=== PATIENT | female | born 1945 | race Caucasian/White ===

== ENCOUNTER 2017-09-21 12:52 | Emergency (ER) | payer MEDICARE, BC ==
[2017-09-21 13:38] VITALS: BP 127/59
[2017-09-21 14:08] LABS: CHLORIDE,CL 107 mmol/L (98-107); SODIUM,NA 140 mmol/L (136-145)
--- NOTE | 2017-09-21 15:00 | EDM.PDOC ---
ED HPI GENERAL MEDICAL PROBLEM - General Chief Complaint: General Stated Complaint: weakness and history of anemia Time Seen by Provider: 09/21/17 13:10 Source of Information: Reports: Patient History Limitations: Reports: No Limitations - History of Present Illness INITIAL COMMENTS - FREE TEXT/NARRATIVE: Patient is in the emergency room with weakness and just not feeling right. She has had some trouble with anemia with her hemoglobin going down to 6.3 at one time and then back up to 9. She also did have a low iron of 10 and is now on iron supplementation. She does have a history of colonoscopy which was done this year and also EGD. She did say that they are having a hard time finding out why she is bleeding or where she is bleeding from. She also did have a history of a stroke in July 2017 in which she is recovering very well. Onset: Gradual Onset Date: 09/18/17 Duration: Chronic, Getting Worse Location: Reports: Other (Generalized weakness.) Quality: Reports: Burning Severity: Moderate Improves with: Reports: None Worsens with: Reports: None Associated Symptoms: Reports: Weakness. Denies: Confusion, Chest Pain, Fever/ Chills, Headaches, Nausea/Vomiting, Shortness of Breath - Related Data Allergies Allergy/AdvReac Type Severity Reaction Status Date / Time perfume Allergy Other Verified 09/21/17 13:22 molds and smuts Allergy Other Uncoded 12/12/16 08:11 smoke Allergy Other Uncoded 12/12/16 08:11 Home Meds: Home Meds Amoxicillin 500 mg PO TID 12/09/16 [History] Aspirin [Halfprin] 81 mg PO DAILY 12/09/16 [History] Calcium Carbonate/Vitamin D2 [Calcium Oys Shell 250 MG] 1 tab PO BID 12/09/16 [ History] Cholecalciferol (Vitamin D3) [Vitamin D3] 2,000 unit PO DAILY 12/09/16 [History] Multivitamin [Multivitamins] 1 tab PO DAILY 12/09/16 [History] Vitamin B Complex [B Complex] 1 tab PO DAILY 12/09/16 [History] Albuterol [Ventolin HFA] 2 puff INH Q4H PRN 09/21/17 [History] Carvedilol [Carvedilol] 1 tab PO BID 09/21/17 [History] Ferrous Sulfate 300 mg PO DAILY 09/21/17 [History] Lisinopril [Lisinopril] 10 mg PO DAILY 09/21/17 [History] atorvaSTATin [Lipitor] 5 mg PO BEDTIME 09/21/17 [History] Past Medical History HEENT History: Reports: Cataract, Hard of Hearing, Other (See Below) Other HEENT History: presbyopia. myopia Cardiovascular History: Reports: None Respiratory History: Reports: None Other Respiratory History: Early pnuemonia and bronchitis Gastrointestinal History: Reports: Other (See Below) Other Gastrointestinal History: hx h. pylori. 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: Musculoskeletal History: Reports: Arthritis Neurological History: Reports: Concussion, CVA Psychiatric History: Reports: Anxiety Endocrine/Metabolic History: Reports: Osteopenia Hematologic History: Reports: Anemia, Iron Deficiency Immunologic History: Reports: None Oncologic (Cancer) History: Reports: None Dermatologic History: Reports: Other (See Below) Other Dermatologic History: skin tumor - Past Surgical History Cardiovascular Surgical History: Reports: None Neurological Surgical History: Reports: None Musculoskeletal Surgical History: Reports: Other (See Below) Social & Family History - Tobacco Use Smoking Status *Q: Never Smoker Years of Tobacco use: 10 Used Tobacco, but Quit: Yes Second Hand Smoke Exposure: No - Caffeine Use Caffeine Use: Reports: Coffee - Alcohol Use Days Per Week of Alcohol Use: 2 Number of Drinks Per Day: 1 Total Drinks Per Week: 2 - Recreational Drug Use Recreational Drug Use: No Drug Use in Last 12 Months: No ED ROS GENERAL - Review of Systems Review Of Systems: See Below Constitutional: Reports: Weakness, Fatigue. Denies: Fever, Chills, Night Sweats HEENT: Reports: No Symptoms Respiratory: Denies: Shortness of Breath, Wheezing, Cough Cardiovascular: Denies: Chest Pain, Edema, Lightheadedness Endocrine: Reports: No Symptoms GI/Abdominal: Reports: Other (She has not noticed any darkening stools.). Denies: Constipation, Diarrhea, Nausea, Vomiting : Reports: No Symptoms Musculoskeletal: Reports: Other (Shows generalized muscle weakness and cannot walk a long distance without feeling weak and tired.) Skin: Reports: No Symptoms Neurological: Reports: Difficulty Walking, Weakness. Denies: Confusion, Dizziness, Headache, Numbness, Tingling Psychiatric: Reports: No Symptoms ED EXAM, GENERAL - Physical Exam Exam: See Below Exam Limited By: No Limitations General Appearance: Alert, No Apparent Distress Ears: Normal External Exam, Normal TMs Nose: Normal Inspection Throat/Mouth: Normal Inspection, Normal Oropharynx Head: Normocephalic Neck: Full Range of Motion Respiratory/Chest: No Respiratory Distress, Lungs Clear, Normal Breath Sounds. No: Crackles, Rales, Rhonchi, Wheezing Cardiovascular: Regular Rate, Rhythm, No Edema, No JVD, No Murmur Peripheral Pulses: 2+: Radial (L), Radial (R) GI/Abdominal: Normal Bowel Sounds, Soft, Non-Tender Extremities: Normal Range of Motion, No Pedal Edema Neurological: Alert, Oriented, CN II-XII Intact, Normal Gait Psychiatric: Normal Affect, Normal Mood Skin Exam: Warm, Dry, Intact, Normal Color, No Rash Course - Vital Signs Last Recorded V/S: Last Vital Signs Temp 36.0 C 09/21/17 13:28 Pulse 80 09/21/17 13:28 Resp 16 09/21/17 13:28 BP 127/59 L 09/21/17 13:28 Pulse Ox 100 09/21/17 13:28 - Orders/Labs/Meds Labs: Laboratory Tests 09/21/17 09/21/17 09/21/17 Range/Units 13:30 13:30 13:30 WBC 5.4 (4.0-10.0) x10^3/uL RBC 2.06 L (4.00-5.50) x10^6/uL Hgb 5.3 L* (12.0-16.0) g/dL Hct 18.3 L (33.0-47.0) % MCV 88.8 (78.0-93.0) fL MCH 25.7 L (26.0-32.0) pg MCHC 29.0 L (32.0-36.0) g/dL RDW Coeff of Marie 19.6 H (10.0-15.0) % Plt Count 176 (130-400) x10^3/uL Neut % (Auto) 65.7 (50.0-80.0) % Lymph % (Auto) 24.4 L (25.0-50.0) % [place] % (Auto) 8.2 (2.0-11.0) % Eos % (Auto) 1.1 (0.0-4.0) % Baso % (Auto) 0.6 (0.2-1.2) % Sodium 140 (136-145) mmol/L Potassium 3.4 L (3.5-5.1) mmol/L Chloride 107 (98-107) mmol/L Carbon Dioxide 27 (21-32) mmol/L BUN 28 H (7-18) mg/dL Creatinine 0.8 (0.55-1.02) mg/dL Est Cr Clr Drug Dosing 60.38 mL/min Estimated GFR (MDRD) > 60 Glucose 115 H (74-106) mg/dL Calcium 9.4 (8.5-10.1) mg/dL Corrected Calcium 10.12 H (8.5-10.1) mg/dL Iron 245 H (50-170) ug/dL TIBC 391 (250-450) ug/dL % Saturation 62.7 H (20.0-50.0) % Ferritin 9 (8-252) ng/mL Total Bilirubin 0.2 (0.2-1.0) mg/dL AST 17 (15-37) U/L ALT 24 (14-59) U/L Alkaline Phosphatase 62 (46-116) U/L Total Protein 5.8 L (6.4-8.2) g/dL Albumin 3.1 L (3.4-5.0) g/dL Globulin 2.7 Albumin/Globulin Ratio 1.15 Urine Color (YELLOW) Urine Appearance (CLEAR) Urine pH (5.0-8.0) Ur Specific [place] Urine Protein (NEGATIVE) mg/dL Urine Glucose (UA) (NEGATIVE) mg/dL Urine Ketones (NEGATIVE) mg/dL Urine Occult Blood (NEGATIVE) Urine Nitrite (NEGATIVE) Urine Bilirubin (NEGATIVE) Urine Urobilinogen (0.2) EU/dL Ur Leukocyte Esterase (NEGATIVE) Urine RBC (NOT SEEN) /HPF Urine WBC (NOT SEEN) /HPF Ur Squamous Epith Cells (NEGATIVE) /HPF Urine Bacteria (NEGATIVE) /HPF Hyaline Casts (NEGATIVE) /HPF Urine Mucus (NEGATIVE) /LPF Urine Yeast (Budding) 09/21/17 Range/Units 14:11 WBC (4.0-10.0) x10^3/uL RBC (4.00-5.50) x10^6/uL Hgb (12.0-16.0) g/dL Hct (33.0-47.0) % MCV (78.0-93.0) fL MCH (26.0-32.0) pg MCHC (32.0-36.0) g/dL RDW Coeff of Marie (10.0-15.0) % Plt Count (130-400) x10^3/uL Neut % (Auto) (50.0-80.0) % Lymph % (Auto) (25.0-50.0) % [place] % (Auto) (2.0-11.0) % Eos % (Auto) (0.0-4.0) % Baso % (Auto) (0.2-1.2) % Sodium (136-145) mmol/L Potassium (3.5-5.1) mmol/L Chloride (98-107) mmol/L Carbon Dioxide (21-32) mmol/L BUN (7-18) mg/dL Creatinine (0.55-1.02) mg/dL Est Cr Clr Drug Dosing mL/min Estimated GFR (MDRD) Glucose (74-106) mg/dL Calcium (8.5-10.1) mg/dL Corrected Calcium (8.5-10.1) mg/dL Iron (50-170) ug/dL TIBC (250-450) ug/dL % Saturation (20.0-50.0) % Ferritin (8-252) ng/mL Total Bilirubin (0.2-1.0) mg/dL AST (15-37) U/L ALT (14-59) U/L Alkaline Phosphatase (46-116) U/L Total Protein (6.4-8.2) g/dL Albumin (3.4-5.0) g/dL Globulin Albumin/Globulin Ratio Urine Color Yellow (YELLOW) Urine Appearance Clear (CLEAR) Urine pH 7.0 (5.0-8.0) Ur Specific [place] 1.015 Urine Protein Negative (NEGATIVE) mg/dL Urine Glucose (UA) Negative (NEGATIVE) mg/dL Urine Ketones Negative (NEGATIVE) mg/dL Urine Occult Blood Negative (NEGATIVE) Urine Nitrite Negative (NEGATIVE) Urine Bilirubin Negative (NEGATIVE) Urine Urobilinogen 0.2 (0.2) EU/dL Ur Leukocyte Esterase Trace H (NEGATIVE) Urine RBC 0-5 (NOT SEEN) /HPF Urine WBC 0-5 (NOT SEEN) /HPF Ur Squamous Epith Cells Rare (NEGATIVE) /HPF Urine Bacteria Not seen (NEGATIVE) /HPF Hyaline Casts Few H (NEGATIVE) /HPF Urine Mucus Few H (NEGATIVE) /LPF Urine Yeast (Budding) Not seen Departure - Departure Time of Disposition: 15:04 Disposition: DC/Tfer to Acute Hospital 02 Condition: Good Clinical Impression: Anemia Qualifiers: Anemia type: unspecified type Qualified Code(s): D64.9 - Anemia, unspecified - Discharge Information Referrals: Imelda Medina DO [Primary Care Provider] - Forms: ED Department Discharge Additional Instructions: Patient will be transferred to [facility] in [place]. Dr. Gutierrez is accepting physician and she will be a direct admit. Patient did comment that she would like to be transferred for further testing as she would like to find out what is the cause of her anemia. She will be going by private vehicle.
== END 2017-09-21 15:43 | disposition short-term general hospital (02) ==
LOC: VM.ED 12:52
DX: D64.9 Anemia, unspecified (principal); Z79.82 Long term (current) use of aspirin; Z79.899 Other long term (current) drug therapy
CPT/HCPCS: 36415; 80053; 81001; 82728; 83540; 83550; 85025; 99285; 99285-GF

== ENCOUNTER 2019-02-10 15:14 | Emergency (ER) | payer MEDICARE, BC ==
[2019-02-10 15:31] VITALS: BP 169/92
[2019-02-10] MEDS ORDERED: Sodium Chloride 0.9% 10 ML Syringe FLUSH PRN (15:37)
[2019-02-10] MEDS: Ondansetron 4 MG/2 ML SDV IVPUSH ONE ×2 (15:58→18:45)
[2019-02-10] MEDS: Sodium Chloride 0.9% 1,000 ML IV SCH (15:58)
--- NOTE | 2019-02-10 16:02 | EDM.PDOC ---
ED HPI GENERAL MEDICAL PROBLEM - General Chief Complaint: Abdominal Pain Stated Complaint: abdominal pain, nausea, vomiting Time Seen by Provider: 02/10/19 15:37 Source of Information: Reports: Patient, Family History Limitations: Reports: No Limitations - History of Present Illness INITIAL COMMENTS - FREE TEXT/NARRATIVE: Patient reports feeling ill starting last night and this AM began having nausea and vomiting. Describes pain as constant, sharp pain. She has tried 2 tums, vomiting after the second one she took. She has also tried heat and cold to her stomach. She denies any headache, loss of consciousness, no chest pain, no shortness of breath, no blood in emesis, urine, or stool. No pain in extremities or neck. No recent falls or trauma. States her eat the same foods as she did last night and he is not ill. 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/cold) Middle Abdomen Pain Score (Numeric/FACES): 8 - Related Data Allergies Allergy/AdvReac Type Severity Reaction Status Date / Time perfume Allergy Other Verified 02/10/19 15:34 molds and smuts Allergy Other Uncoded 12/12/16 08:11 smoke Allergy Other Uncoded 12/12/16 08:11 Home Meds: Home Meds Amoxicillin 500 mg PO TID 12/09/16 [History] Aspirin [Halfprin] 81 mg PO DAILY 12/09/16 [History] Calcium Carbonate/Vitamin D2 [Calcium Oys Shell 250 MG] 1 tab PO BID 12/09/16 [ History] Cholecalciferol (Vitamin D3) [Vitamin D3] 2,000 unit PO DAILY 12/09/16 [History] Multivitamin [Multivitamins] 1 tab PO DAILY 12/09/16 [History] Vitamin B Complex [B Complex] 1 tab PO DAILY 12/09/16 [History] Albuterol [Ventolin HFA] 2 puff INH Q4H PRN 09/21/17 [History] Carvedilol 1 tab PO BID 09/21/17 [History] Ferrous Sulfate 300 mg PO DAILY 09/21/17 [History] Lisinopril 10 mg PO DAILY 09/21/17 [History] atorvaSTATin [Lipitor] 5 mg PO BEDTIME 09/21/17 [History] Past Medical History HEENT History: Reports: Cataract, Hard of Hearing, Other (See Below) Other HEENT History: presbyopia. myopia Cardiovascular History: Reports: None Respiratory History: Reports: None Other Respiratory History: Early pnuemonia and bronchitis Gastrointestinal History: Reports: Other (See Below) Other Gastrointestinal History: hx h. pylori. 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: Musculoskeletal History: Reports: Arthritis Neurological History: Reports: Concussion, CVA Psychiatric History: Reports: Anxiety Endocrine/Metabolic History: Reports: Osteopenia Hematologic History: Reports: Anemia, Iron Deficiency Immunologic History: Reports: None Oncologic (Cancer) History: Reports: None Dermatologic History: Reports: Other (See Below) Other Dermatologic History: skin tumor - Past Surgical History Musculoskeletal Surgical History: Reports: Other (See Below) Social & Family History - Tobacco Use Smoking Status *Q: Never Smoker - Caffeine Use Caffeine Use: Reports: Coffee ED ROS GENERAL - Review of Systems Review Of Systems: See Below Constitutional: Reports: No Symptoms HEENT: Reports: No Symptoms Respiratory: Reports: No Symptoms Cardiovascular: Reports: No Symptoms Endocrine: Reports: No Symptoms GI/Abdominal: Reports: Abdominal Pain, Nausea, Vomiting. Denies: Hematemesis, Hematochezia, Melena : Reports: No Symptoms Musculoskeletal: Reports: No Symptoms Skin: Reports: No Symptoms Neurological: Reports: No Symptoms Psychiatric: Reports: No Symptoms Hematologic/Lymphatic: Reports: No Symptoms Immunologic: Reports: No Symptoms ED EXAM, GI/ABD - Physical Exam Exam: See Below Exam Limited By: No Limitations General Appearance: Alert, WD/WN, Mild Distress Eyes: Bilateral: Normal Appearance, EOMI Ears: Normal TMs Nose: Normal Inspection, Normal Mucosa, No Blood Throat/Mouth: Normal Inspection, Normal Lips, Normal Teeth, Normal Gums, Normal Oropharynx, Normal Voice, No Airway Compromise Head: Atraumatic, Normocephalic Neck: Normal Inspection, Supple, Non-Tender, Full Range of Motion Respiratory/Chest: No Respiratory Distress, Lungs Clear, Normal Breath Sounds, No Accessory Muscle Use, Chest Non-Tender Cardiovascular: Normal Peripheral Pulses, Regular Rate, Rhythm, No Edema, No Gallop, No JVD, No Murmur, No Rub GI/Abdominal Exam: No Abnormal Bruit, Rigid, Tender Back Exam: Normal Inspection, Full Range of Motion, NT Extremities: Normal Inspection, Normal Range of Motion, Non-Tender, Normal Capillary Refill, No Pedal Edema Neurological: Alert, Oriented, CN II-XII Intact, Normal Cognition, Normal Gait, Normal Reflexes, No Motor/Sensory Deficits Psychiatric: Normal Affect, Normal Mood Skin Exam: Warm, Dry, Intact, Normal Color, No Rash Lymphatic: No Adenopathy Course - Vital Signs Last Recorded V/S: Last Vital Signs Temp 37.2 C 02/10/19 15:20 Pulse 89 02/10/19 15:20 Resp 18 02/10/19 15:20 BP 169/92 H 02/10/19 15:20 Pulse Ox 99 02/10/19 15:20 - Orders/Labs/Meds Orders: Active Orders 24 hr Category Date Time Status EKG Documentation Completion [RC] STAT Care 02/10/19 15:37 Ordered Morphine Med 02/10/19 18:37 Once 2 mg IVPUSH ONETIME ONE Ondansetron [Zofran] Med 02/10/19 18:37 Once 4 mg IVPUSH ONETIME ONE Sodium Chloride 0.9% [Normal Saline] 1,000 ml Med 02/10/19 15:45 Ordered IV ASDIRECTED Sodium Chloride 0.9% [Saline Flush] Med 02/10/19 15:37 Ordered 10 ml FLUSH ASDIRECTED PRN Saline Lock Insert [OM.PC] Routine Oth 02/10/19 15:37 Ordered Medication Orders Sodium Chloride (Normal Saline) 1,000 mls @ 999 mls/hr IV ASDIRECTED SERJIO Last Admin: 02/10/19 15:58 Dose: 999 mls/hr Sodium Chloride (Saline Flush) 10 ml FLUSH ASDIRECTED PRN PRN Reason: Keep Vein Open Labs: Laboratory Tests 02/10/19 02/10/19 02/10/19 Range/Units 15:56 15:56 15:56 WBC 11.4 H (4.0-10.0) x10^3/uL RBC 4.31 (4.00-5.50) x10^6/uL Hgb 14.3 D (12.0-16.0) g/dL Hct 42.2 (33.0-47.0) % MCV 97.9 H D (78.0-93.0) fL MCH 33.2 H (26.0-32.0) pg MCHC 33.9 (32.0-36.0) g/dL RDW Coeff of Marie 12.8 (10.0-15.0) % Plt Count 197 (130-400) x10^3/uL Neut % (Auto) 87.5 H (50.0-80.0) % Lymph % (Auto) 6.6 L (25.0-50.0) % [place] % (Auto) 5.7 (2.0-11.0) % Eos % (Auto) 0.1 (0.0-4.0) % Baso % (Auto) 0.1 L (0.2-1.2) % Sodium 140 (136-145) mmol/L Potassium 3.5 (3.5-5.1) mmol/L Chloride 101 (98-107) mmol/L Carbon Dioxide 24 (21-32) mmol/L Anion Gap 18.5 (10-20) mmol/L BUN 21 H (7-18) mg/dL Creatinine 1.2 H (0.55-1.02) mg/dL Est Cr Clr Drug Dosing TNP Estimated GFR (MDRD) 44 Glucose 166 H (74-106) mg/dL Calcium 10.6 H (8.5-10.1) mg/dL Corrected Calcium 10.12 H (8.5-10.1) mg/dL Phosphorus 2.3 L (2.6-4.7) mg/dL Magnesium 2.0 (1.8-2.4) mg/dL Total Bilirubin 0.9 (0.2-1.0) mg/dL AST 25 (15-37) U/L ALT 33 (14-59) U/L Alkaline Phosphatase 76 (46-116) U/L Creatine Kinase 204 H* (26-192) U/L Troponin I < 0.017 (<=0.056) ng/mL NT-Pro-B Natriuret Pep 772 H (<=125) pg/mL Total Protein 8.0 (6.4-8.2) g/dL Albumin 4.6 (3.4-5.0) g/dL Globulin 3.4 Albumin/Globulin Ratio 1.35 Amylase 75 (25-115) U/L Lipase 162 (73-393) U/L Urine Color (YELLOW) Urine Appearance (CLEAR) Urine pH (5.0-8.0) Ur Specific [place] Urine Protein (NEGATIVE) mg/dL Urine Glucose (UA) (NEGATIVE) mg/dL Urine Ketones (NEGATIVE) mg/dL Urine Occult Blood (NEGATIVE) Urine Nitrite (NEGATIVE) Urine Bilirubin (NEGATIVE) Urine Urobilinogen (0.2) EU/dL Ur Leukocyte Esterase (NEGATIVE) Urine RBC (NOT SEEN) /HPF Urine WBC (NOT SEEN) /HPF Ur Squamous Epith Cells (NEGATIVE) /HPF Urine Bacteria (NEGATIVE) /HPF Hyaline Casts (NEGATIVE) /HPF Granular Casts (NEGATIVE) /HPF RBC Casts (NOT SEEN) /HPF Urine Mucus (NEGATIVE) /LPF 02/10/19 Range/Units 17:03 WBC (4.0-10.0) x10^3/uL RBC (4.00-5.50) x10^6/uL Hgb (12.0-16.0) g/dL Hct (33.0-47.0) % MCV (78.0-93.0) fL MCH (26.0-32.0) pg MCHC (32.0-36.0) g/dL RDW Coeff of Marie (10.0-15.0) % Plt Count (130-400) x10^3/uL Neut % (Auto) (50.0-80.0) % Lymph % (Auto) (25.0-50.0) % [place] % (Auto) (2.0-11.0) % Eos % (Auto) (0.0-4.0) % Baso % (Auto) (0.2-1.2) % Sodium (136-145) mmol/L Potassium (3.5-5.1) mmol/L Chloride (98-107) mmol/L Carbon Dioxide (21-32) mmol/L Anion Gap (10-20) mmol/L BUN (7-18) mg/dL Creatinine (0.55-1.02) mg/dL Est Cr Clr Drug Dosing Estimated GFR (MDRD) Glucose (74-106) mg/dL Calcium (8.5-10.1) mg/dL Corrected Calcium (8.5-10.1) mg/dL Phosphorus (2.6-4.7) mg/dL Magnesium (1.8-2.4) mg/dL Total Bilirubin (0.2-1.0) mg/dL AST (15-37) U/L ALT (14-59) U/L Alkaline Phosphatase (46-116) U/L Creatine Kinase (26-192) U/L Troponin I (<=0.056) ng/mL NT-Pro-B Natriuret Pep (<=125) pg/mL Total Protein (6.4-8.2) g/dL Albumin (3.4-5.0) g/dL Globulin Albumin/Globulin Ratio Amylase (25-115) U/L Lipase (73-393) U/L Urine Color Light yellow (YELLOW) Urine Appearance Clear (CLEAR) Urine pH 7.0 (5.0-8.0) Ur Specific [place] 1.015 Urine Protein Negative (NEGATIVE) mg/dL Urine Glucose (UA) Negative (NEGATIVE) mg/dL Urine Ketones 15 H (NEGATIVE) mg/dL Urine Occult Blood Moderate H (NEGATIVE) Urine Nitrite Negative (NEGATIVE) Urine Bilirubin Negative (NEGATIVE) Urine Urobilinogen 0.2 (0.2) EU/dL Ur Leukocyte Esterase Negative (NEGATIVE) Urine RBC 5-10 H (NOT SEEN) /HPF Urine WBC 0-5 (NOT SEEN) /HPF Ur Squamous Epith Cells Few H (NEGATIVE) /HPF Urine Bacteria Not seen (NEGATIVE) /HPF Hyaline Casts Rare H (NEGATIVE) /HPF Granular Casts Rare H (NEGATIVE) /HPF RBC Casts Rare H (NOT SEEN) /HPF Urine Mucus Rare H (NEGATIVE) /LPF Meds: Medications Generic Name Dose Route Start Last Admin Trade Name Freq PRN Reason Stop Dose Admin Sodium Chloride 1,000 mls @ 999 mls/hr 02/10/19 15:45 02/10/19 15:58 Normal Saline IV 999 mls/hr ASDIRECTED SERJIO Administration Sodium Chloride 10 ml 02/10/19 15:37 Saline Flush FLUSH ASDIRECTED PRN Keep Vein Open Discontinued Medications Generic Name Dose Route Start Last Admin Trade Name Freq PRN Reason Stop Dose Admin Iopamidol 100 ml 02/10/19 16:33 02/10/19 16:52 Isovue-300 (61%) IVPUSH 03/13/19 16:34 100 ml ONETIME ONE Administration Ondansetron HCl 4 mg 02/10/19 15:37 02/10/19 15:58 Zofran IVPUSH 02/10/19 15:38 4 mg ONETIME ONE Administration - Radiology Interpretation Free Text/Narrative:: CT abdomen shows mid to distal small bowel obstruction Departure - Departure Time of Disposition: 18:38 Disposition: DC/Tfer to Acute Hospital 02 Condition: Fair Clinical Impression: Small bowel obstruction - Discharge Information *PRESCRIPTION DRUG MONITORING PROGRAM REVIEWED*: No *COPY OF PRESCRIPTION DRUG MONITORING REPORT IN PATIENT MELISSA: No Instructions: Small Bowel Obstruction Referrals: Imelda Medina, [Primary Care Provider] - Forms: ED Department Discharge, Interfacility Transfer [facility] ED Communication - ED Communication Date/Time Date: 02/10/19 Time Called: 17:48 - Discussed Case With (1) Discussed Case With (1): Admitting Provider (Dr. Peace was contacted. Report given and she will accept patient.) Person/s Notified (1): katie - My Orders Last 24 Hours: My Active Orders 02/10/19 15:37 EKG Documentation Completion [RC] STAT Sodium Chloride 0.9% [Saline Flush] 10 ml FLUSH ASDIRECTED PRN Saline Lock Insert [OM.PC] Routine 02/10/19 15:45 Sodium Chloride 0.9% [Normal Saline] 1,000 ml IV ASDIRECTED 02/10/19 18:37 Morphine 2 mg IVPUSH ONETIME ONE Ondansetron [Zofran] 4 mg IVPUSH ONETIME ONE - Assessment/Plan Last 24 Hours: My Active Orders 02/10/19 15:37 EKG Documentation Completion [RC] STAT Sodium Chloride 0.9% [Saline Flush] 10 ml FLUSH ASDIRECTED PRN Saline Lock Insert [OM.PC] Routine 02/10/19 15:45 Sodium Chloride 0.9% [Normal Saline] 1,000 ml IV ASDIRECTED 02/10/19 18:37 Morphine 2 mg IVPUSH ONETIME ONE Ondansetron [Zofran] 4 mg IVPUSH ONETIME ONE
[2019-02-10 16:30] LABS: ANION GAP 18.5 mmol/L (10-20); CHLORIDE,CL 101 mmol/L (98-107); SODIUM,NA 140 mmol/L (136-145)
[2019-02-10] MEDS: Iopamidol 612 MG/ML 100 ML Bottle IVPUSH ONE (16:52)
--- NOTE | 2019-02-10 17:29 | CT ---
[id number] CT/CT Abdomen Pelvis W IV EXAM: CT Abdomen Pelvis W IV CLINICAL DATA: ABDOMINAL PAIN. NAUSEA AND VOMITING. COMPARISON: CORRELATION IS MADE WITH THE EXAM OF MARCH 18, 2017. FINDINGS: There is a significant small bowel obstruction. There is no free air. There is a small amount of free fluid. There is no pneumatosis intestinalis or portal venous air. There is evidence of previous bowel surgery. The pelvis shows no mass or adenopathy. The appendix is not seen. There is no evidence of appendicitis. The liver and spleen show no acute focal abnormalities. The aorta, adrenals, pancreas, and kidneys also show no acute abnormalities. There are atheromatous changes. There are occasional tiny renal and hepatic cysts. The gallbladder is not distended. Report called at time of dictation. IMPRESSION: MID TO DISTAL SMALL BOWEL OBSTRUCTION. Chacorta Mckenna MD 02/10/19 [id number] Thank you for allowing us to participate in the care of your patient.
[2019-02-10] MEDS: Morphine 2 MG/ML Syringe IVPUSH ONE (18:45)
== END 2019-02-10 18:50 | disposition short-term general hospital (02) ==
LOC: VM.ED 15:14
DX: K56.609 Unspecified intestinal obstruction, unspecified as to partial versus complete obstruction (principal); Z91.048 Other nonmedicinal substance allergy status; Z79.82 Long term (current) use of aspirin; Z79.899 Other long term (current) drug therapy
CPT/HCPCS: 74177; 80053; 81001; 82150; 82550; 83690; 83735; 83880; 84100; 84484; 85025; 93005; 96361; 96374; 96375; 96376; 99284; J2270; J2405; J7030; Q9967

== ENCOUNTER 2022-12-12 10:08 | Day surgery (SDC) | payer MEDICARE, BC ==
[~2022-12-12 10:08] MED LIST: Lactated Ringers 1,000 ML IV SCH; Sodium Chloride 0.9% 10 ML Syringe FLUSH PRN
[2022-12-12] MEDS ORDERED: Propofol 200 MG/20 ML SDV ONE ×2 (13:16→13:31)
[2022-12-12] MEDS ORDERED: fentaNYL 100 MCG/2 ML SDV ONE (13:16)
[2022-12-12] MEDS ORDERED: Potassium Chloride Riders 0 ML ONE (13:29)
[2022-12-12 14:11] VITALS: BP 145/77; PULSE 79
== END 2022-12-12 15:00 | disposition home or self-care (01) ==
LOC: VM.SDS 10:08
PROVIDERS: ATTEND Family Medicine
DX: K57.30 Diverticulosis of large intestine without perforation or abscess without bleeding (principal); C49.A3 Gastrointestinal stromal tumor of small intestine; F41.8 Other specified anxiety disorders; I42.8 Other cardiomyopathies; Z86.010 Personal history of colon polyps; Z91.048 Other nonmedicinal substance allergy status; Z91.010 Allergy to peanuts; Z98.890 Other specified postprocedural states; Z90.49 Acquired absence of other specified parts of digestive tract; Z79.899 Other long term (current) drug therapy
CPT/HCPCS: 00811; J2704; J3010; J3480; J7120